=== PATIENT | male | born 1955 | race Caucasian/White ===

== ENCOUNTER 2020-02-26 12:27 | Observation (INO) | payer BC ==
--- OUTSIDE RECORDS SUMMARY | 2020-02-26 12:29 | XMS REPORT ---
:1955 Author Organization [facility] t Address [address] [place] [address] Dr. Pettit [address] [place] [id number] Care Team Providers Name Role Phone Unavailable Unavailable Unavailable Problems This patient has no known problems. Allergies, Adverse Reactions, Alerts This patient has no known allergies or adverse reactions. Medications This patient has no known medications. Procedures This patient has no known procedures. Results This patient has no known results.
[2020-02-26 12:56] LABS: Absolute Lymphocytes (CBC) 1.8 K/uL (0.7-4.9); Basophils % 1.3 % (0-1.3); Hematocrit 49.4 % (39.6-49.0); Lymphocytes % 41.8 % (15.3-44.8); MPV 9.1 fL (7.6-11.3); RBC Red Blood Cell Count 5.24 M/uL (4.33-5.43)
[2020-02-26 13:07] LABS: Protime INR 0.97
--- NOTE | 2020-02-26 13:17 | RAD REPORT ---
EXAM DESCRIPTION: Cherelle Single View02/26/2020 12:51 pm CLINICAL HISTORY: Chest pain COMPARISON: none FINDINGS: The lungs appear clear of acute infiltrate. The heart is normal size IMPRESSION: No acute abnormalities displayed
[2020-02-26 13:20] LABS: ALT/SGPT 81 U/L (12-78); AST/SGOT 39 U/L (15-37); Albumin 3.8 g/dL (3.4-5.0); Alkaline Phosphatase 99 U/L (45-117); BUN Blood Urea Nitrogen 29 mg/dL (7-18); Bicarbonate 28 mmol/L (21-32); Bilirubin Direct < 0.1 mg/dL (0-0.2); Bilirubin Total 0.4 mg/dL (0.2-1.0); Glucose Level 72 mg/dL (74-106); NT PRO-BNP 56 pg/mL (<125); Potassium 5.1 mmol/L (3.5-5.1); Protein, Total 7.2 g/dL (6.4-8.2); Sodium Level 141 mmol/L (136-145); Troponin (Emerg Dept Use Only) < 0.02 ng/mL (0.0-0.045)
[2020-02-26] MEDS ORDERED: FAMOTIDINE 20 MG/2 ML VIAL IV ONE (13:23)
[2020-02-26] MEDS ORDERED: ENOXAPARIN 100 MG/ML SYR SQ ONE (13:36)
[2020-02-26 13:43] LABS: Urine Blood TRACE (NEG); Urine Glucose NEGATIVE (NEG); Urine Protein NEGATIVE (NEG)
[2020-02-26] MEDS ORDERED: ACETAMINOPHEN 500 MG TAB PO PRN (14:35)
[2020-02-26] MEDS ORDERED: ALBUTEROL 2.5 MG/3 ML NEB SOL NEB PRN (14:35)
[2020-02-26] MEDS ORDERED: ONDANSETRON 4 MG/2 ML VIAL IV PRN (14:35)
[2020-02-26] MEDS ORDERED: ENOXAPARIN 40 MG/0.4 ML SQ SCH (15:00)
[2020-02-26 15:11] LABS: Urine Appearance CLEAR; Urine Bilirubin NEGATIVE (NEG); Urine Blood NEGATIVE (NEG); Urine Color YELLOW; Urine Glucose NEGATIVE (NEG); Urine Protein NEGATIVE (NEG); Urine Specific Gravity 1.015 (1.005-1.030); Urine Urobilinogen 0.2 mg/dL (0.2-1.0)
[2020-02-26 15:14] LABS: Urine Microscopic Reflex NO UMIC
[2020-02-26 15:34] LABS: Creatine Phosphokinase 143 U/L (39-308); Thyroid Stimulating Hormone 0.785 uIU/mL (0.360-3.740); Troponin I < 0.02 ng/mL (0.0-0.045)
[2020-02-26] MEDS ORDERED: METOPROLOL TAR 25 MG TAB ONE (15:50)
[2020-02-26 16:06] VITALS: TEMP 98.5
[2020-02-26 16:08] VITALS: O2SAT 95
[2020-02-26 16:10] VITALS: BP 126/76
--- NOTE | 2020-02-26 16:32 | P.HP ---
Certification for Inpatient Patient admitted to: Observation With expected LOS: <2 Midnights Patient will require the following post-hospital care: None Practitioner: I am a practitioner with admitting privileges, knowledge of patient current condition, hospital course, and medical plan of care. Services: Services provided to patient in accordance with Admission requirements found in Title 42 Section 412.3 of the Code of Federal Regulations Patient History Date of Service: 02/26/20 Reason for admission: Chest pain, possible effort angina History of Present Illness: 64-year-old male with past medical history of hypertension, hyperlipidemia, CAD status post stents followed by came to ER with chest discomfort and exertional dyspnea which has been progressively worsening over the last 2 weeks. Chest pain is retrosternal with no radiation, pressure-like, not associated with any diaphoresis. No nausea vomiting or diarrhea. No fever or chills. At the time of interview. Chest pain is better. He also noted that getting short of breath pretty easily compared to before. Over the last 2 weeks he had an progressive worsening of the exertional dyspnea. Patient was assessed in the ER and is admitted for further management of possible unstable angina Home medications list reviewed: Yes - Past Medical/Surgical History Past Medical History: Reviewed- Non-Contributory -: Hypertension -: CAD Review of Systems 10-point ROS is otherwise unremarkable Physical Examination - Vital Signs Temperature: 98.5 F Blood Pressure: 126/76 Pulse: 70 Respirations: 16 - Physical Exam General: Alert, In no apparent distress, Oriented x3 HEENT: Atraumatic, Normocephalic Neck: Supple Respiratory: Clear to auscultation bilaterally, Normal air movement Cardiovascular: Normal pulses, Regular rate/rhythm Capillary refill: <2 Seconds Gastrointestinal: Soft and benign, W/out hepatosplenomegaly Musculoskeletal: No clubbing, No swelling Integumentary: No rashes, No tenderness/swelling Neurological: Normal gait, Normal speech, Normal strength at 5/5 x4 extr Lymphatics: No axilla or inguinal lymphadenopathy Rectal: Deferred - Studies Laboratory Data (last 24 hrs) 02/26/20 12:45: PT 11.4, INR 0.97 02/26/20 12:45: WBC 4.4, Hgb 17.1, Hct 49.4 H, Plt Count 219 02/26/20 12:45: Sodium 141, Potassium 5.1, BUN 29 H, Creatinine 1.36 H, Glucose 72 L, Magnesium 2.0, Total Bilirubin 0.4, AST 39 H, ALT 81 H, Alkaline Phosphatase 99 02/26/20 12:40: Lipase 364 02/26/20 12:40: WBC Cancelled, Hgb Cancelled, Hct Cancelled, Plt Count Cancelled 02/26/20 12:40: Sodium Cancelled, Potassium Cancelled, BUN Cancelled, Creatinine Cancelled, Glucose Cancelled, Magnesium Cancelled, Total Bilirubin Cancelled, AST Cancelled, ALT Cancelled, Alkaline Phosphatase Cancelled Laboratory Last Values WBC 4.4 K/uL (4.3-10.9) 02/26/20 12:45 RBC 5.24 M/uL (4.33-5.43) 02/26/20 12:45 Hgb 17.1 g/dL (13.6-17.9) 02/26/20 12:45 Hct 49.4 % (39.6-49.0) H 02/26/20 12:45 MCV 94.1 fL (80-100) 02/26/20 12:45 MCH 32.6 pg (27.0-35.0) 02/26/20 12:45 MCHC 34.6 g/dL (32.0-36.0) 02/26/20 12:45 RDW 12.5 % (12.1-15.2) 02/26/20 12:45 Plt Count 219 K/uL (152-406) 02/26/20 12:45 MPV 9.1 fL (7.6-11.3) 02/26/20 12:45 Plt Distribution Width Cancelled 02/26/20 12:40 Absolute Nucleated RBC Cancelled 02/26/20 12:40 Neutrophils % 42.3 % (41.7-73.7) 02/26/20 12:45 Lymphocytes % 41.8 % (15.3-44.8) 02/26/20 12:45 Monocytes % 12.3 % (3.3-12.3) 02/26/20 12:45 Eosinophils % 2.3 % (0-4.4) 02/26/20 12:45 Basophils % 1.3 % (0-1.3) 02/26/20 12:45 Nucleated RBC % Cancelled 02/26/20 12:40 Absolute Neutrophils 1.9 K/uL (1.8-8.0) 02/26/20 12:45 Absolute Lymphocytes 1.8 K/uL (0.7-4.9) 02/26/20 12:45 Absolute Monocytes 0.5 K/uL (0.1-1.3) 02/26/20 12:45 Absolute Eosinophils 0.1 K/uL (0-0.5) 02/26/20 12:45 Absolute Basophils 0.1 K/uL (0-0.5) 02/26/20 12:45 Diff Path Review Cancelled 02/26/20 12:40 PT 11.4 SECONDS (9.5-12.5) 02/26/20 12:45 INR 0.97 02/26/20 12:45 Sodium 141 mmol/L (136-145) 02/26/20 12:45 Potassium 5.1 mmol/L (3.5-5.1) 02/26/20 12:45 Chloride 109 mmol/L (98-107) H 02/26/20 12:45 Carbon Dioxide 28 mmol/L (21-32) 02/26/20 12:45 BUN 29 mg/dL (7-18) H 02/26/20 12:45 Creatinine 1.36 mg/dL (0.55-1.3) H 02/26/20 12:45 Estimated GFR 53 mL/min (=/>90) L 02/26/20 12:45 Glucose 72 mg/dL (74-106) L 02/26/20 12:45 Calcium 8.9 mg/dL (8.5-10.1) 02/26/20 12:45 Magnesium 2.0 mg/dL (1.8-2.4) 02/26/20 12:45 Total Bilirubin 0.4 mg/dL (0.2-1.0) 02/26/20 12:45 Direct Bilirubin < 0.1 mg/dL (0-0.2) 02/26/20 12:45 AST 39 U/L (15-37) H 02/26/20 12:45 ALT 81 U/L (12-78) H 02/26/20 12:45 Alkaline Phosphatase 99 U/L (45-117) 02/26/20 12:45 Rapid Troponin I < 0.02 ng/mL (0.0-0.045) 02/26/20 12:45 NT-Pro-B Natriuret Pep 56 pg/mL (<125) 02/26/20 12:45 Serum Total Protein 7.2 g/dL (6.4-8.2) 02/26/20 12:45 Albumin 3.8 g/dL (3.4-5.0) 02/26/20 12:45 Globulin 3.4 g/dL (2.3-3.5) 02/26/20 12:45 Albumin/Globulin Ratio 1.1 (1.1-1.8) 02/26/20 12:45 Lipase 364 U/L (73-393) 02/26/20 12:40 Urine Color Yellow 02/26/20 13:21 Urine Appearance Clear 02/26/20 13:21 Urine pH 6.0 (5.0-7.0) 02/26/20 13:26 Ur Specific [place] 1.020 (1.005-1.030) 02/26/20 13:26 Glucose (UA)(Auto) Negative (NEG) 02/26/20 13:26 Urine Ketones Negative (NEG) 02/26/20 13:26 Urine Blood Trace (NEG) H 02/26/20 13:26 Urine Nitrite Negative (NEG) 02/26/20 13:26 Urine Bilirubin Negative (NEG) 02/26/20 13:21 Urine Urobilinogen 0.2 mg/dL (0.2-1.0) 02/26/20 13:21 Ur Leukocyte Esterase Negative (NEG) 02/26/20 13:26 Urine Total Protein Negative (NEG) 02/26/20 13:26 Assessment and Plan - Problems (Diagnosis) (1) Exertional dyspnea Current Visit: Yes Status: Acute (2) Accelerated hypertension Current Visit: Yes Status: Acute (3) Unstable angina Current Visit: Yes Status: Acute (4) Effort angina Current Visit: Yes Status: Acute (5) History of coronary artery disease Current Visit: Yes Status: Chronic (6) Hyperlipidemia Current Visit: Yes Status: Chronic (7) Acute renal insufficiency Current Visit: Yes Status: Acute (8) Elevated LFTs Current Visit: Yes Status: Acute - Advance Directives Does patient have a Living Will: No Does patient have a Durable POA for Healthcare: No Physician Review Additional Text: Unstable angina Accelerated hypertension Possible effort angina Acute renal insufficiency Hyperlipidemia History of CAD status post stents Elevated LFTs Plan Monitor under telemetry Trend cardiac enzymes With an echocardiogram Cardiology consult Start on aspirin statin Get a liver ultrasound Monitor LFTs monitor renal parameters Give slow hydration Continue home medications and titrate as needed Antihypertensives titrated GI/DVT prophylaxis Advanced directives full code Time Spent Managing Pts Care (In Minutes): 42
[2020-02-26] MEDS ORDERED: HYDRALAZINE HCL 20 MG/ML VIAL IV PRN (16:36)
[2020-02-26] MEDS ORDERED: ASPIRIN EC 81 MG TAB PO SCH (16:36)
[2020-02-26] MEDS ORDERED: ATORVASTATIN 40 MG TAB PO SCH (21:00)
--- NOTE | 2020-02-27 12:55 | EKG ---
Test Date: 2020-02-26 Test Time: 15:00:10 Quality Control Operator: SARA MEASUREMENT RESULTS: Intervals: Rate: 67 ME: 144 QRSD: 90 QT: 418 QTc: 441 Lillie: P: 47 ME: 144 QRS: 33 T: 34 INTERPRETIVE STATEMENTS: Normal sinus rhythm Possible Left atrial enlargement Borderline ECG Electronically Signed On 02-27-20 12:55:07 CDT by Tamir Abad
--- NOTE | 2020-02-27 12:57 | EKG ---
Test Date: 2020-02-26 Test Time: 12:35:06 Tub Rider: MEASUREMENT RESULTS: Intervals: Rate: 85 [place]: 140 QRSD: 90 QT: 390 QTc: 464 [place]: P: 72 [place]: 140 QRS: 68 T: 38 INTERPRETIVE STATEMENTS: Normal sinus rhythm Possible Left atrial enlargement ST abnormality, possible digitalis effect Abnormal ECG No previous ECG available for comparison Electronically Signed On 02-27-20 12:56:31 CDT by Tamir Abad
--- NOTE | 2020-02-29 17:00 | ER ---
Nurse's Notes [facility] Name: Shahram Dillard Jr Age: 64 yrs Sex: Male : 1955 Arrival Date: 02/26/2020 Time: 12:29 Bed 20 Private MD: Diagnosis: Other chest pain;Dyspnea;Essential (primary) hypertension Presentation: 02/25 12:38 Chief complaint: EMS states: Chest pain started 45 mins ago, SOB with chest pain, ca1 reports L jaw pain. Hx of 2 heart attack (6 months apart) with 2 cardiac stents done 2003. Chewed 325mg aspirin when the pain started prior to EMS arrival at scene. Upon arrival at scene, pt reports symptoms resolved. 12:38 Method Of Arrival: EMS: [facility] ca1 12:42 Coronavirus screen: Proceed with normal triage. Patient denies a cough. Patient denies ca1 shortness of breath or difficulty breathing. Patient denies measured and/or subjective temperature greater than 100.4F prior to today's visit. Patient denies travel on a cruise ship or to a country the [facility] currently lists as an affected area. Patient denies contact with known and/or suspected case of COVID-19. Ebola Screen: Patient negative for fever greater than or equal to 101.5 degrees Fahrenheit, and additional compatible Ebola Virus Disease symptoms Patient denies exposure to infectious person. Patient denies travel to an Ebola-affected area in the 21 days before illness onset. No symptoms or risks identified at this time. Initial Sepsis Screen: Does the patient meet any 2 criteria? No. Patient's initial sepsis screen is negative. Does the patient have a suspected source of infection? No. Patient's initial sepsis screen is negative. Risk Assessment: Do you want to hurt yourself or someone else? Patient reports no desire to harm self or others. Onset of symptoms was February 26, 2020 at 12:00. 12:42 Acuity: MARÍA ELENA 3 ca1 Triage Assessment: 12:47 General: Appears in no apparent distress. comfortable. General: Behavior is calm, ca1 cooperative, appropriate for age. Pain: Denies pain. Complains of pain in chest Pain radiates to left mandible Pain currently is 0 out of 10 on a pain scale. Pain began 1 hour ago. Is intermittent. Pain: Also complains of shortness of breath. EENT: No signs and/or symptoms were reported regarding the EENT system. Neuro: Level of Consciousness is awake, alert, obeys commands, Oriented to person, place, time, situation. Cardiovascular: Heart tones S1 S2 present Capillary refill < 3 seconds Patient's skin is warm and dry. Pulses are all present. Rhythm is sinus rhythm. Respiratory: Airway is patent Respiratory effort is even, unlabored, Respiratory pattern is regular, symmetrical, Breath sounds are clear bilaterally. GI: Abdomen is flat, non-distended, Bowel sounds present X 4 quads. Abd is soft and non tender X 4 quads. : No signs and/or symptoms were reported regarding the genitourinary system. Derm: Skin is intact, is healthy with good turgor, Skin is pink, warm \T\ dry. Musculoskeletal: Circulation, motion, and sensation intact. Capillary refill < 3 seconds. Historical: - Allergies: 12:46 Ancef; ca1 12:46 Cortisone; ca1 - Home Meds: 12:46 aspirin 81 mg Oral chew 1 tab once daily [Active]; fenofibrate 160 mg oral tab 1 tab ca1 once daily [Active]; metoprolol tartrate 25 mg Oral tab [Active]; clopidogrel 75 mg oral tab 1 tab once daily [Active]; simvastatin 80 mg Oral tab [Active]; meloxicam 15 mg oral tab [Active]; anastrozole 1 mg oral tab [Active]; testostosterone 5cc/week [Active]; - PMHx: 12:46 CAD; Myocardial infarction; ca1 - PSHx: 12:46 Heart stents; ca1 12:47 Fundoplication; Knee surgery; ca1 - Immunization history:: Adult Immunizations up to date. - Social history:: Smoking status: Patient denies any tobacco usage or history of. - Family history:: not pertinent. Screenin:49 Abuse screen: Denies threats or abuse. Denies injuries from another. Nutritional ca1 screening: No deficits noted. Tuberculosis screening: No symptoms or risk factors identified. Fall Risk IV access (20 points). Assessment: 12:49 Reassessment: See triage notes. Pain: Denies pain. Complains of pain in chest Pain ca1 radiates to L jaw Pain currently is 0 out of 10 on a pain scale. at worst was 2 out of 10 on a pain scale. Quality of pain is described as heavy, pressure, Pain began 1 hour ago. 13:50 Reassessment: Patient appears in no apparent distress at this time. Patient and/or ca1 family updated on plan of care and expected duration. Pain level reassessed. Patient is alert, oriented x 3, equal unlabored respirations, skin warm/dry/pink. Pain:. 14:50 Reassessment: Patient appears in no apparent distress at this time. Patient and/or ca1 family updated on plan of care and expected duration. Pain level reassessed. Patient is alert, oriented x 3, equal unlabored respirations, skin warm/dry/pink. 15:55 Reassessment: Patient appears in no apparent distress at this time. Patient is alert, ca1 oriented x 3, equal unlabored respirations, skin warm/dry/pink. Vital Signs: 12:42 BP 148 / 77; Pulse 87; Resp 18 S; Temp 98.5(O); Pulse Ox 97% on R/A; Weight 113.4 kg ca1 (R); Height 6 ft. 3 in. (190.50 cm) (R); Pain 0/10; 13:50 BP 129 / 91; Pulse 69; Resp 18 S; Pulse Ox 95% on R/A; ca1 14:45 BP 131 / 79; Pulse 70; Resp 15 S; Pulse Ox 95% on R/A; ca1 15:39 BP 126 / 76; Pulse 70; Resp 16 S; Pulse Ox 95% on R/A; ca1 12:42 Body Mass Index 31.25 (113.40 kg, 190.50 cm) ca1 ED Course: 12:29 Patient arrived in ED. as 12:36 Pa Umaña MD is Attending Physician. prieto 12:38 Gricelda Palencia RN is Primary Nurse. ca1 12:43 Triage completed. ca1 12:47 Arm band placed on right wrist. EKG completed in triage. Results shown to MD. ca1 12:49 Patient has correct armband on for positive identification. Placed in gown. Bed in low ca1 position. Call light in reach. Side rails up X2. safety belt installer on. Pulse ox on. NIBP on. Warm blanket given. 12:49 No provider procedures requiring assistance completed. Initial lab(s) drawn, by ED ca1 staff, sent to lab. Inserted saline lock: 18 gauge in right antecubital area, using aseptic technique. ,using aseptic technique. by KERA Valderrama Blood collected. Patient maintains SpO2 saturation greater than 95% on room air. 12:54 XRAY Chest (1 view) In Process Unspecified. EDMS 14:01 Ryan Russell MD is Hospitalizing Provider. [facility] 15:39 Tamir Abad MD is Referral Physician. prieto 15:56 IV discontinued, intact, bleeding controlled, No redness/swelling at site. Pressure ca1 dressing applied. 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 prieto 15:40 Discharge ordered by . prieto 15:56 Discharged to home ambulatory. ca1 15:56 Condition: stable 15:56 Discharge instructions given to patient, Instructed on discharge instructions, follow up and referral plans. medication usage, Demonstrated understanding of instructions, follow-up care, medications, Prescriptions given X 2. 15:57 Patient left the ED. ca1 Signatures: Dispatcher [employer] Pa Goodson MD MD cha Martinez, Amelia as Acob, Cheryl, RN RN ca1 Corrections: (The following items were deleted from the chart) 15:39 12:49 Pain: Denies pain. ca1 ca1
--- NOTE | 2020-02-29 17:01 | EDPHYS ---
Physician Documentation [facility] Name: Shahram Dillard Jr Age: 64 yrs Sex: Male : 1955 Arrival Date: 02/26/2020 Time: 12:29 Bed 20 Private MD: PHYLLIS Physician Pa Umaña HPI: 02/25 13:11 This 64 yrs old Male presents to ER via EMS with complaints of Chest Pain. prieto 13:11 The patient or guardian reports chest pain that is located primarily in the substernal prieto area. Onset: just prior to arrival. The pain radiates to Associated signs and symptoms: The patient has no apparent associated signs or symptoms. The chest pain is described as a pressure. Modifying factors: The symptoms are alleviated by rest. Historical: - Allergies: 12:46 Ancef; ca1 12:46 Cortisone; ca1 - Home Meds: 12:46 aspirin 81 mg Oral chew 1 tab once daily [Active]; fenofibrate 160 mg oral tab 1 tab ca1 once daily [Active]; metoprolol tartrate 25 mg Oral tab [Active]; clopidogrel 75 mg oral tab 1 tab once daily [Active]; simvastatin 80 mg Oral tab [Active]; meloxicam 15 mg oral tab [Active]; anastrozole 1 mg oral tab [Active]; testostosterone 5cc/week [Active]; - PMHx: 12:46 CAD; Myocardial infarction; ca1 - PSHx: 12:46 Heart stents; ca1 12:47 Fundoplication; Knee surgery; ca1 - Immunization history:: Adult Immunizations up to date. - Social history:: Smoking status: Patient denies any tobacco usage or history of. - Family history:: not pertinent. ROS: 13:14 Constitutional: Negative for fever, chills, and weight loss, Eyes: Negative for injury, prieto pain, redness, and discharge, ENT: Negative for injury, pain, and discharge, Neck: Negative for injury, pain, and swelling, Abdomen/GI: Negative for abdominal pain, nausea, vomiting, diarrhea, and constipation, Back: Negative for injury and pain, : Negative for injury, bleeding, discharge, and swelling, MS/Extremity: Negative for injury and deformity, Skin: Negative for injury, rash, and discoloration, Neuro: Negative for headache, weakness, numbness, tingling, and seizure, Psych: Negative for depression, anxiety, suicide ideation, homicidal ideation, and hallucinations, Allergy/Immunology: Negative for hives, rash, and allergies, Endocrine: Negative for neck swelling, polydipsia, polyuria, polyphagia, and marked weight changes, Hematologic/Lymphatic: Negative for swollen nodes, abnormal bleeding, and unusual bruising. 13:14 Cardiovascular: Positive for chest pain, of the chest. 13:14 Respiratory: Positive for shortness of breath, at rest. Exam: 13:14 Constitutional: This is a well developed, well nourished patient who is awake, alert, prieto and in no acute distress. Head/Face: Normocephalic, atraumatic. Eyes: Pupils equal round and reactive to light, extra-ocular motions intact. Lids and lashes normal. Conjunctiva and sclera are non-icteric and not injected. Cornea within normal limits. Periorbital areas with no swelling, redness, or edema. ENT: Nares patent. No nasal discharge, no septal abnormalities noted. Tympanic membranes are normal and external auditory canals are clear. Oropharynx with no redness, swelling, or masses, exudates, or evidence of obstruction, uvula midline. Mucous membranes moist. Neck: Trachea midline, no thyromegaly or masses palpated, and no cervical lymphadenopathy. Supple, full range of motion without nuchal rigidity, or vertebral point tenderness. No Meningismus. Chest/axilla: Normal chest wall appearance and motion. Nontender with no deformity. No lesions are appreciated. Cardiovascular: Regular rate and rhythm with a normal S1 and S2. No gallops, murmurs, or rubs. Normal PMI, no JVD. No pulse deficits. Respiratory: Lungs have equal breath sounds bilaterally, clear to auscultation and percussion. No rales, rhonchi or wheezes noted. No increased work of breathing, no retractions or nasal flaring. Abdomen/GI: Soft, non-tender, with normal bowel sounds. No distension or tympany. No guarding or rebound. No evidence of tenderness throughout. Back: No spinal tenderness. No costovertebral tenderness. Full range of motion. Male : Normal genitalia with no discharge or lesions. Skin: Warm, dry with normal turgor. Normal color with no rashes, no lesions, and no evidence of cellulitis. MS/ Extremity: Pulses equal, no cyanosis. Neurovascular intact. Full, normal range of motion. Neuro: Awake and alert, GCS 15, oriented to person, place, time, and situation. Cranial nerves II-XII grossly intact. Motor strength 5/5 in all extremities. Sensory grossly intact. Cerebellar exam normal. Normal gait. Psych: Awake, alert, with orientation to person, place and time. Behavior, mood, and affect are within normal limits. 13:18 Musculoskeletal/extremity: DVT Exam: No signs of deep vein thrombosis. no pain, no prieto swelling, no tenderness, negative Homans' sign noted on exam, no appreciated bluish discoloration, no erythema, no increased warmth. 15:03 ECG was reviewed by the Attending Physician. [facility] 15:04 ECG was reviewed by the Attending Physician. [facility] Vital Signs: 12:42 BP 148 / 77; Pulse 87; Resp 18 S; Temp 98.5(O); Pulse Ox 97% on R/A; Weight 113.4 kg ca1 (R); Height 6 ft. 3 in. (190.50 cm) (R); Pain 0/10; 13:50 BP 129 / 91; Pulse 69; Resp 18 S; Pulse Ox 95% on R/A; ca1 14:45 BP 131 / 79; Pulse 70; Resp 15 S; Pulse Ox 95% on R/A; ca1 15:39 BP 126 / 76; Pulse 70; Resp 16 S; Pulse Ox 95% on R/A; ca1 12:42 Body Mass Index 31.25 (113.40 kg, 190.50 cm) ca1 MDM: 12:36 Patient medically screened. [facility] 13:15 Data reviewed: vital signs, nurses notes, lab test result(s), EKG, radiologic studies, [facility] plain films. 13:16 Antibiotic administration: Not indicated. Differential diagnosis: acute myocardial prieto infarction, anxiety, coronary artery disease congestive heart failure gastroesophageal reflux disease (GERD), hiatal hernia, pulmonary embolus, unstable angina, Myocardial Infarction pulmonary edema, Unstable Angina. HEART Score: History: Highly Suspicious (2), ECG: Non specific repolarization disturbance / LBTB / PM (1), Age: > 45 and < 65 years (1), Risk Factors: > or = 3 Risk factors for atherosclerotic disease (2), [Hypercholesterolemia] [Hypertension] [+ Family HX]. The patient was not given aspirin in the Emergency Department. Patient reports taking aspirin within the past 24 hours. JARVIS Risk Score: 1 - Three or more CAD risk factors, [Family Hx], [HTN], [Elevated Cholesterol], 1- Known CAD, 1 - ASA use in past 7 days, 1 - Recent [<24hrs] Severe Angina, TOTAL SCORE = 4. 13:17 Immunization status: Influenza vaccine: within last 5 years. Data interpreted: Cardiac prieto monitor: rate is 87 beats/min, Pulse oximetry: on room air is 97 %. Test interpretation: by ED physician or midlevel provider: ECG, plain radiologic studies. 13:58 The patient's deep vein thrombosis risk score was calculated as follows: Total Score: prieto 0. This patient was found to be at low risk for a deep vein thrombosis by using the Well's assessment criteria Total Score: 0-2 Pts- Low Risk. ED course: dw pt labs, ekg and cxr. dw dr elizabeth and dr abad, admit obs, r/o and get echo. 15:41 The patient's pulmonary embolism risk score was calculated as follows: Total Score: 0-2 prieto points. This patient was found to be at low risk for a pulmonary embolism by using the Well's assessment criteria Total Score: 0-2 points. This patient was found to be at low risk for a pulmonary embolism by using the Well's assessment criteria. Physician consultation: Tamir Abad MD and will see patient in office, double lopressor, stay on all other meds. in 2-3 days. 02/25 12:39 Order name: Basic Metabolic Panel; Complete Time: 13:55 prieto 02/25 12:39 Order name: CBC with Diff; Complete Time: 13:55 prieto 02/25 12:39 Order name: LFT's; Complete Time: 13:55 prieto 02/25 12:39 Order name: Magnesium; Complete Time: 13:55 prieto 02/25 12:39 Order name: NT PRO-BNP; Complete Time: 13:55 prieto 02/25 12:39 Order name: Troponin (emerg Dept Use Only); Complete Time: 13:55 prieto 02/25 12:40 Order name: PT-INR; Complete Time: 13:55 ls4 02/25 13:11 Order name: Lipase; Complete Time: 13:55 [facility] 02/25 12:40 Order name: XRAY Chest (1 view); Complete Time: 13:55 [facility] 02/25 13:26 Order name: Urine Dipstick--Ancillary (enter results); Complete Time: 13:55 02/25 14:32 Order name: Echo w/ Doppler [facility] 02/25 14:40 Order name: CKMB Creatine Kinase MB; Complete Time: 15:36 [facility] 02/25 14:40 Order name: CKMB Creatine Kinase MB [facility] 02/25 14:40 Order name: Creatine Phosphokinase; Complete Time: 15:36 [facility] 02/25 14:40 Order name: Creatine Phosphokinase [facility] 02/25 14:40 Order name: Troponin I; Complete Time: 15:36 [facility] 02/25 14:40 Order name: Troponin I [facility] 02/25 15:07 Order name: Urinalysis; Complete Time: 15:32 [facility] 02/25 15:13 Order name: Thyroid Stimulating Hormone; Complete Time: 15:36 [facility] 02/25 12:39 Order name: EKG; Complete Time: 12:41 [facility] 02/25 12:39 Order name: Cardiac monitoring; Complete Time: 12:51 [facility] 02/25 12:39 Order name: EKG - Nurse/Tech; Complete Time: 12:51 [facility] 02/25 12:39 Order name: IV Saline Lock; Complete Time: 12:51 [facility] 02/25 12:39 Order name: Labs collected and sent; Complete Time: 12:51 [facility] 02/25 12:39 Order name: O2 Per Protocol; Complete Time: 12:51 [facility] 02/25 12:39 Order name: O2 Sat Monitoring; Complete Time: 12:51 [facility] 02/25 12:40 Order name: O2 Per Protocol; Complete Time: 12:50 [facility] 02/25 12:40 Order name: O2 Sat Monitoring; Complete Time: 12:50 [facility] 02/25 12:40 Order name: IV Saline Lock; Complete Time: 12:51 [facility] 02/25 12:40 Order name: Labs collected and sent; Complete Time: 12:50 [facility] 02/25 12:40 Order name: Cardiac monitoring; Complete Time: 12:50 [facility] 02/25 12:40 Order name: EKG - Nurse/Tech; Complete Time: 12:51 [facility] 02/25 12:40 Order name: EKG; Complete Time: 12:42 [facility] 02/25 14:32 Order name: Repeat Cardiac Enzymes at: 300pm; Complete Time: 14:49 prieto 02/25 14:40 Order name: CONS Physician Consult EDMS 02/25 14:40 Order name: Heart Healthy EDNE EC:03 Rate is 67 beats/min. Rhythm is regular. QRS [place] is Normal. [place] interval is normal. QRS prieto interval is normal. QT interval is normal. No Q waves. T waves are Normal. No ST changes noted. Clinical impression: NSR w/ Non-specific ST/T Changes and No evidence of ischemia. Interpreted by me. Reviewed by me. 15:04 Rate is 85 beats/min. Rhythm is regular. QRS [place] is Normal. [place] interval is normal. QRS prieto interval is normal. QT interval is normal. No Q waves. T waves are Normal. No ST changes noted. Clinical impression: NSR w/ Non-specific ST/T Changes and No evidence of ischemia. Interpreted by me. Reviewed by me. Administered Medications: 12:51 Not Given (Pt took aspirin 325mg [employer]ENOGR[employer] REPORTER): Aspirin 162 mg PO once ca1 13:20 Drug: Pepcid 20 mg Route: IVP; Site: right antecubital; ca1 14:14 Follow up: Response: No adverse reaction ca1 13:48 Drug: Lovenox 100 mg Route: Sub-Q; Site: right lower abdomen; ca1 14:14 Follow up: Response: No adverse reaction ca1 15:45 Drug: Lopressor 25 mg Route: PO; ca1 15:56 Follow up: Response: No adverse reaction ca1 Disposition: 02/26/20 15:40 Discharged to Home. Impression: Other chest pain, Dyspnea, Essential (primary) hypertension. - Condition is Stable. - Discharge Instructions: Hypertension, Shortness of Breath, Shortness of Breath, [id number], Nonspecific Chest Pain, [id number], Hypertension, [id number], How to Take Your Blood Pressure, [id number]-[id number], Aspirin and Your Heart, Managing Your Hypertension. - Prescriptions for Lopressor 50 mg Oral Tablet - take 1 tablet by ORAL route every 12 hours; 20 tablet. Plavix 75 mg Oral Tablet - take 1 tablet by ORAL route once daily; 20 tablet. - Medication Reconciliation Form, Thank You Letter, Antibiotic Education, Prescription Opioid Use form. - Follow up: Private Physician; When: 2 - 3 days; Reason: Recheck today's complaints, Continuance of care, Re-evaluation by your physician. Follow up: Tamir Abad MD; When: 2 - 3 days; Reason: Recheck today's complaints, Continuance of care, Re-evaluation by your physician. - Problem is new. - Symptoms have improved. Signatures: Dispatcher [employer] EDMS DuyMarcelina ojeda Pa Soliz MD MD cha Aguilar, Jose, RN RN ja1 Jannie Gupta RN RN ls4 Gricelda Palencia RN RN ca1 Corrections: (The following items were deleted from the chart) 12:54 12:41 Chest Single View+RAD.RAD.BRZ ordered. EDMS EDMS 14:57 12:41 PROBNP+C.LAB.BRZ ordered. EDMS EDMS 14:57 12:41 TROPONIN (EMERG DEPT USE ONLY)+C.LAB.BRZ ordered. EDMS EDMS 14:57 12:42 CBC+H.LAB.BRZ ordered. EDMS EDMS 14:57 12:42 MAGNESIUM+C.LAB.BRZ ordered. EDMS EDMS 14:57 12:42 HEPATIC FUNCTION+C.LAB.BRZ ordered. EDMS EDMS 14:57 12:42 BASIC METABOLIC PANEL+C.LAB.BRZ ordered. EDMS EDMS 15:03 14:32 TROPONIN (EMERG DEPT USE ONLY)+C.LAB.BRZ ordered. EDMS EDMS 15:13 14:40 Thyroid Stimulating Hormone ordered. EDMS EDMS 15:18 14:02 Hospitalization Ordered by Ryan Elizabeth MD for Observation. Preliminary bd diagnosis is Other chest pain; Dyspnea. Bed requested for Telemetry/MedSurg (observation). Status is Observation. Condition is Fair. Problem is new. Symptoms have improved. prieto 15:27 15:18 02/26/2020 14:02 Hospitalization Ordered by Ryan Elizabeth MD for Observation. ja1 Preliminary diagnosis is Other chest pain; Dyspnea. Bed requested for Telemetry/MedSurg (observation). Status is Observation. Condition is Fair. Problem is new. Symptoms have improved. bd 15:39 15:27 02/26/2020 14:02 Hospitalization Ordered by Ryan Elizabeth MD for Observation. prieto Preliminary diagnosis is Other chest pain; Dyspnea. Bed requested for Telemetry/MedSurg (observation). Status is Observation. Condition is Fair. Problem is new. Symptoms have improved. ja1 15:57 15:40 02/26/2020 15:40 Discharged to Home. Impression: Other chest pain; Dyspnea; ca1 Essential (primary) hypertension. Condition is Stable. Forms are Medication Reconciliation Form, Thank You Letter, Antibiotic Education, Prescription Opioid Use. Follow up: Private Physician; When: 2 - 3 days; Reason: Recheck today's complaints, Continuance of care, Re-evaluation by your physician. Follow up: Tamir Abad; When: 2 - 3 days; Reason: Recheck today's complaints, Continuance of care, Re-evaluation by your physician. Problem is new. Symptoms have improved. prieto
== END 2020-02-26 15:57 | disposition home health service (06) ==
LOC: ER 12:27 → ERHOLD 14:36
PROVIDERS: ADMIT Family Medicine; ATTEND Family Medicine
DX: I25.110 Atherosclerotic heart disease of native coronary artery with unstable angina pectoris (principal); R06.00 Dyspnea, unspecified; I10 Essential (primary) hypertension; E78.5 Hyperlipidemia, unspecified; N28.9 Disorder of kidney and ureter, unspecified; R79.89 Other specified abnormal findings of blood chemistry; Z95.5 Presence of coronary angioplasty implant and graft
CPT/HCPCS: 93005 ×2; 85025; 80048; 36415; 83735; 82550; 85610; 80076; 84443; 81003 ×2; 84484 ×2; 82553; 83690; 83880; 71045; 94760; 96372; 96374; 99285; J1650; G0378